=== PATIENT | female | born 2000 | race Hispanic/Latino ===

== ENCOUNTER 2022-01-21 01:30 | Emergency (ER) | payer BC ==
[2022-01-21 02:01] VITALS: BP 118/80
--- NOTE | 2022-01-21 07:54 | Event Note ---
ED Screening Note ED Screening Note: in w/c to ER via EMS last night states she popped her pelvis and now she can not walk lle weakness incont urine denies any trauma / fever This initial assessment/diagnostic orders/clinical plan/treatment(s) is/are subject to change based on patients health status, clinical progression and re- assessment by fellow clinical providers in the ED. Further treatment and workup at subsequent clinical providers discretion. Patient/guardian urged not to elope from the ED as their condition may be serious if not clinically assessed and managed. Initial orders include: labs to bowen
[2022-01-21] MEDS ORDERED: KETOROLAC 30 MG/1 ML INJ IV ONE (08:31)
[2022-01-21] MEDS ORDERED: ONDANSETRON 4 MG/2 ML INJ IV ONE (08:31)
[2022-01-21] MEDS ORDERED: HYDROmorphone 1 MG/1 ML INJ IV ONE (08:31)
[2022-01-21 08:33] LABS: Basophils % (Auto) 0.3 % (0.0-1.8); Eosinophils # (Auto) 0.2 K/mm3 (0.0-0.4); Eosinophils % (Auto) 2.1 % (0.0-4.3); Hematocrit 42.9 % (30.3-42.9); Hemoglobin 14.3 gm/dl (10.1-14.3); Lymphocytes # (Auto) 2.8 K/mm3 (1.2-5.4); Mean Corpuscular HGB Conc 33 % (30-34); Mean Corpuscular Volume 90 fl (79-97); Monocytes # (Auto) 0.5 K/mm3 (0.0-0.8); Monocytes % (Auto) 6.8 % (0.0-7.3); Platelet Count 200 K/mm3 (140-440); Red Blood Count 4.78 M/mm3 (3.65-5.03); Red Cell Distribution Width 12.8 % (13.2-15.2)
--- NOTE | 2022-01-21 08:55 | Emergency Department Report ---
ED Lower Extremity HPI - General Chief Complaint: Back Pain/Injury Stated Complaint: BACK/HIP PAIN Time Seen by Provider: 01/21/22 08:15 Source: EMS Mode of arrival: Ambulatory Limitations: No Limitations - History of Present Illness Initial Comments: 22-year-old female with a past medical history anxiety, ADHD, PTSD, depression presents to hospital complaining of severe right hip/inguinal pain. Patient pressed her right foot against her left foot and attempt to "pop her left toe". That during that pressing downward motion she felt severe pain to the inner right thigh making it unable for her to ambulate. Patient denies lower back pain or leg numbness. At time of my evaluation patient is sitting on a wheelchair putting pressure primarily on the left hip and is hesitant to move in any direction due to exacerbation of pain. Patient denies urinary incontinence. She had to urinate during transport and was told by the EMS provider to just let it go if she could not hold it any longer. Patient apparently is under care of orthopedic doctor and takes Naprosyn for loose joints that popped out of place. Patient has had history of shoulder issues but denies previous hip dislocations. - Related Data Allergies Allergy/AdvReac Type Severity Reaction Status Date / Time diary Allergy Nausea Uncoded 01/21/22 01:57 ED Review of Systems ROS: Stated complaint: BACK/HIP PAIN Other details as noted in HPI Comment: All other systems reviewed and negative ED Past Medical Hx - Past Medical History Previous Medical History?: Yes Hx Psychiatric Treatment: Yes (anxiety, ADHD, depression, PTSD) - Surgical History Past Surgical History?: No - Social History Smoking Status: Never Smoker ED Physical Exam - General Limitations: No Limitations - Other Other exam information: General: Mild distress secondary to pain Head: Atraumatic Eyes: normal appearance ENT: Moist mucous membranes Neck: Normal appearance, no midline tenderness Chest: Clear to auscultation bilaterally CV: Regular rate and rhythm Abdomen: Soft, normal bowel sounds, nontender, nondistended, no rebound or guarding Back: Normal inspection Extremity: Right hip tenderness to palpation. Right hip internally rotated and shortened with right knee held in flexed position. 2+ DP pulse, sensation intact with full range of motion of toes Neuro: Alert O x 3, no facial asymmetry, speech clear, no gross motor sensory deficit Psych: Appropriate behavior Skin: No rash ED Course Vital Signs 01/21/22 01:57 Temperature 98.2 F Pulse Rate 105 H Respiratory 18 Rate Blood Pressure 118/80 O2 Sat by Pulse 99 Oximetry - Reevaluation(s) Reevaluation #1: 01/21/22 10:05 I was informed by data deliverables manager that after receiving pain medication patient moved and felt her hip pop back into place. She was able to ambulate to the bathroom after that. She now wants to sign out AGAINST MEDICAL ADVICE instead of waiting for x-rays and completion of work-up. They have AN appointment scheduled with an orthopedic doctor at 2 PM ED Lower Extremity MDM - Lab Data Result diagrams: 01/21/22 08:14 01/21/22 08:14 Lab Results 01/21/22 01/21/22 Range/Units 08:14 08:14 WBC 7.5 (4.5-11.0) K/mm3 RBC 4.78 (3.65-5.03) M/mm3 Hgb 14.3 (10.1-14.3) gm/dl Hct 42.9 (30.3-42.9) % MCV 90 (79-97) fl MCH 30 (28-32) pg MCHC 33 (30-34) % RDW 12.8 L (13.2-15.2) % Plt Count 200 (140-440) K/mm3 Lymph % (Auto) 37.0 H (13.4-35.0) % [place] % (Auto) 6.8 (0.0-7.3) % Eos % (Auto) 2.1 (0.0-4.3) % Baso % (Auto) 0.3 (0.0-1.8) % Lymph # (Auto) 2.8 (1.2-5.4) K/mm3 [place] # (Auto) 0.5 (0.0-0.8) K/mm3 Eos # (Auto) 0.2 (0.0-0.4) K/mm3 Baso # (Auto) 0.0 (0.0-0.1) K/mm3 Seg Neutrophils % 53.8 (40.0-70.0) % Seg Neutrophils # 4.0 (1.8-7.7) K/mm3 Sodium 137 (137-145) mmol/L Potassium 4.6 (3.6-5.0) mmol/L Chloride 100.5 (98-107) mmol/L Carbon Dioxide 26 (22-30) mmol/L Anion Gap 15 mmol/L BUN 10 (7-17) mg/dL Creatinine 0.4 L (0.6-1.2) mg/dL Estimated GFR > 60 ml/min BUN/Creatinine Ratio 25 % Glucose 96 (65-100) mg/dL Calcium 9.6 (8.4-10.2) mg/dL Total Bilirubin 0.20 (0.1-1.2) mg/dL AST 23 (5-40) units/L ALT 25 (7-56) units/L Alkaline Phosphatase 92 (35-129) units/L Total Protein 7.3 (6.3-8.2) g/dL Albumin 4.6 (3.9-5) g/dL Albumin/Globulin Ratio 1.7 % - Medical Decision Making 22-year-old female presents to the hospital with right hip pain. Patient did not have urinary incontinence contrary to what is documented by other initial provider. Patient received pain medication, moved in bed, reports that her hip popped back in place. This was all prior to imaging studies. Labs were protocoled by previous provider. Patient is able to ambulate and wants to sign out AGAINST MEDICAL ADVICE and follow-up with her orthopedic doctor at 2 PM for further imaging and work-up Critical Care Time: No Critical care attestation.: If time is entered above; I have spent that time in minutes in the direct care of this critically ill patient, excluding procedure time. ED Disposition Clinical Impression: Right hip pain Disposition: 07 LEFT AGAINST MEDICAL ADVICE Is pt being admited?: No Does the pt Need Aspirin: No Condition: Stable Instructions: Hip Pain Time of Disposition: 10:08
[2022-01-21 08:56] LABS: Alanine Aminotransferase 25 units/L (7-56); Albumin 4.6 g/dL (3.9-5); Blood Urea Nitrogen 10 mg/dL (7-17); Calcium 9.6 mg/dL (8.4-10.2); Hemolysis Index 32
[2022-01-21 08:57] LABS: BUN/Creatinine Ratio 25
[2022-01-21 10:28] LABS: Benzodiazepines Screen,Urine Negative; Cocaine Screen,Urine Negative; Methadone Screen,Urine Negative; Opiate Screen,Urine Negative
[2022-01-21 10:43] LABS: Amphetamine Screen,Urine Positive; Cannabinoid Screen,Urine Positive
[2022-01-21 10:49] LABS: HCG Qualitative,Urine Negative (Negative)
[2022-01-21 11:40] LABS: Bacteria,Urine 1+ /HPF (Negative); Calcium Oxalate Crystals,Urine 3+; Mucus,Urine 2+ /HPF
[2022-01-21 12:20] LABS: Bilirubin,Urine Negative (Negative); Blood,Urine Negative (Negative); Color,Urine Yellow (Yellow); PH,Urine 7.5 (5.0-7.0); Protein,Urine <30 mg dL mg/dL (Negative)
[2022-01-21 12:21] LABS: Urobilinogen,Urine < 2.0 mg/dL (<2.0)
== END 2022-01-21 10:17 | disposition left against medical advice (07) ==
LOC: ED 01:30
DX: M25.551 Pain in right hip (principal); Z79.899 Other long term (current) drug therapy
CPT/HCPCS: 36415; 80053; 80307; 81001; 81025; 84703; 85025; 87086; 96374; 96375; 99284; J1170; J1885; J2405